=== PATIENT | female | born 1965 | race African-American/Black ===

== ENCOUNTER 2019-01-28 18:53 | Emergency (ER) | payer OTHER, BC ==
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
--- NOTE | 2019-01-28 20:12 | RAD ---
PA VIEW OF THE CHEST TWO VIEWS OF THE RIGHT CHEST WALL 02/07/19 COMPARISON: None. FINDINGS: No displaced right sided rib fracture is evident. There is bibasilar subsegmental volume loss. IMPRESSION: No definite pneumothorax. No displaced right sided rib fracture. Subsegmental volume loss involving t he left lung base. POS: [facility]
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
== END 2019-01-28 20:15 | disposition home or self-care (01) ==
LOC: NAV ERS 18:53
DX: S50.12XA Contusion of left forearm, initial encounter (principal); S80.12XA Contusion of left lower leg, initial encounter; S20.01XA Contusion of right breast, initial encounter; V43.52XA Car driver injured in collision with other type car in traffic accident, initial encounter
CPT/HCPCS: 71120